=== PATIENT | male | born 1980 | race Caucasian/White ===

== ENCOUNTER 2018-02-18 16:18 | Emergency (ER) | payer OTHER ==
[2018-02-18] MEDS: DIPHTH/TET/ACEL PERTUSS (ADULT) 0.5 ML VIAL IM* (17:04)
[2018-02-18] MEDS: IBUPROFEN 600 MG TAB PO (17:04)
== END 2018-02-18 17:58 | disposition home or self-care (01) ==
LOC: FTE 16:18
DX: S61.011A Laceration without foreign body of right thumb without damage to nail, initial encounter (principal); W26.0XXA Contact with knife, initial encounter; Y92.9 Unspecified place or not applicable; Z23 Encounter for immunization; Z87.891 Personal history of nicotine dependence
CPT/HCPCS: 12001; 90471; 90715; 99283-25

== ENCOUNTER 2018-05-03 19:34 | Emergency (ER) | payer OTHER | END 2018-05-03 22:39 | disposition home or self-care (01) | LOC: FTE 22:39 | DX: S69.91XA Unspecified injury of right wrist, hand and finger(s), initial encounter (principal); F17.210 Nicotine dependence, cigarettes, uncomplicated; W23.0XXA Caught, crushed, jammed, or pinched between moving objects, initial encounter; Y92.9 Unspecified place or not applicable | CPT/HCPCS: 73140; 99283-25 ==

== ENCOUNTER 2018-11-07 04:37 | Emergency (ER) | payer OTHER ==
[2018-11-07] MEDS: TRIMETHOPRIM/SULFAMETHOX (DS) TAB PO (06:42)
[2018-11-07] MEDS: CEFTRIAXONE 1 GM INJ IM (06:43)
== END 2018-11-07 08:48 | disposition home or self-care (01) ==
LOC: FTE 04:37
DX: L03.113 Cellulitis of right upper limb (principal); Z87.891 Personal history of nicotine dependence
CPT/HCPCS: 96372; 99284-25